=== PATIENT | female | born 2000 | race Caucasian/White ===

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

== ENCOUNTER 2020-02-15 11:35 | Outpatient (REF) | payer BC, SELFPAY ==
--- NOTE | 2020-02-15 10:45 | PAPFT_PTH ---
PATIENT: Eugenia Serra LOC: [facility] U#:[id number] AGE/SX: 20/F ROOM: RE02/15/[address]: DANIELA Eldridge : 2000 BED: DIS: 02/15/2020 SPEC #: [id number] RECD: 02/15/20 12:48 STATUS: DEDE REQ #: [id number] BALDEMAR: 02/15/20 10:[address]: Latoya Augustine DEPT: [facility] Cytology RECD BY: Sabiha Sheth ENTERED: 02/15/20 12:48 SP TYPE: PAPFT OT DR: Unknown,Unknown Tissues: 1 - CX/ENDOCX FOR PAP SMEARS Procedures: PAP THIN PREP/[facility] Screening Comments: [id number]
[2020-02-16 12:49] LABS: Chlamydia Result Negative (Negative); GC Result Negative (Negative)
== END 2020-02-15 11:55 ==
LOC: LBN 11:35
PROVIDERS: Visit Provider Nurse Practitioner Family
DX: Z11.3 Encounter for screening for infections with a predominantly sexual mode of transmission (principal); Z12.4 Encounter for screening for malignant neoplasm of cervix
CPT/HCPCS: 87491; 87591; 88142

== ENCOUNTER 2021-12-29 19:27 | Outpatient (REF) | payer BC, SELFPAY ==
[2022-01-01 17:53] LABS: Chlamydia Result Negative (Negative); GC Result Negative (Negative)
== END 2021-12-29 19:28 | disposition home or self-care (01) ==
LOC: LBN 19:27
PROVIDERS: Visit Provider Advanced Practice Midwife
DX: N89.8 Other specified noninflammatory disorders of vagina (principal); Z11.3 Encounter for screening for infections with a predominantly sexual mode of transmission
CPT/HCPCS: 87491; 87591; 87480; 87510; 87660

== ENCOUNTER 2022-12-05 16:13 | Outpatient (REF) | payer BC, SELFPAY ==
[2022-12-07 13:05] LABS: Chlamydia Result Negative (Negative); GC Result Negative (Negative)
== END 2022-12-05 16:14 | disposition home or self-care (01) ==
LOC: LBN 16:13
PROVIDERS: PCP Nurse Practitioner Women's Health; Visit Provider Nurse Practitioner Women's Health
DX: Z11.3 Encounter for screening for infections with a predominantly sexual mode of transmission (principal)
CPT/HCPCS: 87491; 87591

== ENCOUNTER 2023-01-17 15:05 | Outpatient (REF) | payer BC, SELFPAY ==
--- NOTE | 2023-01-17 14:30 | PAPFT_PTH ---
PATIENT: Eugenia Serra LOC: [facility] U#:[id number] AGE/SX: 23/F ROOM: RE01/17/[address]: Jaleesa Powers DO : 2000 BED: DIS: 01/17/2023 SPEC #: [id number] RECD: 01/17/23 17:36 STATUS: DEDE REQ #: [id number] BALDEMAR: 01/17/23 14:[address]: Jaleesa Powers DEPT: [facility] Cytology RECD BY: Sabiha Sheth Tissues: 1 - CX/ENDOCX FOR PAP SMEARS Procedures: PAP THIN PREP/[facility] Screening HPV DNA PROBE Comments: (HPV 16 & 18/45) (CHLAMYDIA/GC)
[2023-01-18 14:49] LABS: Chlamydia Result Negative (Negative); GC Result Negative (Negative)
== END 2023-01-17 15:06 | disposition home or self-care (01) ==
LOC: LBN 15:05
PROVIDERS: PCP Obstetrics & Gynecology; Visit Provider Obstetrics & Gynecology
DX: Z12.4 Encounter for screening for malignant neoplasm of cervix (principal)
CPT/HCPCS: 87491; 87591; 88142; 87624

== ENCOUNTER 2023-08-02 15:45 | Outpatient (REF) | payer BC, SELFPAY | END 2023-08-02 15:46 | disposition home or self-care (01) | LOC: LBN 15:45 | PROVIDERS: PCP Obstetrics & Gynecology; Visit Provider Obstetrics & Gynecology Gynecology | DX: N89.8 Other specified noninflammatory disorders of vagina (principal) | CPT/HCPCS: 87480; 87510; 87660 ==

== ENCOUNTER 2024-01-31 11:50 | Outpatient (REF) | payer BC, SELFPAY ==
--- NOTE | 2024-01-31 11:00 | PAPFT_PTH ---
PATIENT: Eugenia Serra LOC: [facility] U#:[id number] AGE/SX: 24/F ROOM: RE01/31/[address]: Jaleesa Powers DO : 2000 BED: DIS: 01/31/2024 SPEC #: [id number] RECD: 01/31/24 13:32 STATUS: DEDE REQ #: [id number] BALDEMAR: 01/31/24 11:[address]: Jaleesa Powers DEPT: [facility] Cytology RECD BY: Sabiha Sheth Tissues: 1 - CX/ENDOCX FOR PAP SMEARS Procedures: PAP THIN PREP/[facility] Screening HPV DNA PROBE Comments: [id number] (HPV 16 & 18/45) (CHLAMYDIA/GC)
[2024-02-03 12:50] LABS: Chlamydia Result Negative (Negative); GC Result Negative (Negative)
== END 2024-01-31 11:51 | disposition home or self-care (01) ==
LOC: LBN 11:50
PROVIDERS: PCP Obstetrics & Gynecology; Visit Provider Obstetrics & Gynecology
DX: Z12.4 Encounter for screening for malignant neoplasm of cervix (principal); Z11.3 Encounter for screening for infections with a predominantly sexual mode of transmission
CPT/HCPCS: 87491; 87591; 88142; 87624

== ENCOUNTER 2024-03-04 16:27 | Outpatient (REF) | payer BC, SELFPAY ==
--- NOTE | 2024-03-04 15:30 | ENDO_PTH ---
PATIENT: Eugenia Serra LOC: [facility] U#:[id number] AGE/SX: 24/F ROOM: RE03/04/[address]: Jaleesa Powers DO : 2000 BED: DIS: 03/04/2024 SPEC #: [id number] RECD: 03/04/24 17:35 STATUS: DEDE REQ #: [id number] BALDEMAR: 03/04/24 15:[address]: Jaleesa Powers DEPT: Surgical Specimen RECD BY: Sabiha Sheth Tissues: 1 - ENDOCERVICAL BX/CURRETTE Procedures: GROSS AND MICRO LEVEL 4 Comments: [id number]
== END 2024-03-04 16:28 | disposition home or self-care (01) ==
LOC: LBN 16:27
PROVIDERS: PCP Obstetrics & Gynecology; Visit Provider Obstetrics & Gynecology
DX: D26.0 Other benign neoplasm of cervix uteri (principal); R87.810 Cervical high risk human papillomavirus (HPV) DNA test positive
CPT/HCPCS: 88305

== ENCOUNTER 2024-05-11 15:04 | Outpatient (REF) | payer BC, SELFPAY | END 2024-05-11 15:05 | disposition home or self-care (01) | LOC: LBN 15:04 | PROVIDERS: PCP Obstetrics & Gynecology; Visit Provider Nurse Practitioner Women's Health | DX: N76.0 Acute vaginitis (principal) | CPT/HCPCS: 87480; 87510; 87660 ==